=== PATIENT | male | born 1990 | race Caucasian/White ===

== ENCOUNTER 2017-01-27 22:13 | Emergency (ER) | payer OTHER ==
[2017-01-27 22:40] VITALS: BP 140/83; PULSE 70; RESP 20; TEMP 98.3; O2SAT 100
--- NOTE | 2017-01-27 23:15 | C.PDOC ---
History Of Present Illness 26 yo male come in for evaluation of Right external ear contusion sustained 3 days ago, while boxing. Pt sts, " I just concerned about cauliflower ear". Pt reported, swelling is slowly improves over right external ear. Otherwise, pt denies LOC, syncope, headache, dizziness, visual changes, focal deficits, ear discharge or change in auditory acuity. Ambulate to ED for evaluation, not in any apparent distress. Time Seen by Provider: 01/27/17 22:50 Chief Complaint (Nursing): ENT Problem History Per: Patient Past Medical History Reviewed: Historical Data, Nursing Documentation, Vital Signs Vital Signs: Last Vital Signs Temp 98.3 F 01/27/17 22:37 Pulse 70 01/27/17 22:37 Resp 20 01/27/17 22:37 BP 140/83 01/27/17 22:37 Pulse Ox 100 01/27/17 23:15 - Medical History PMH: No Chronic Diseases Surgical History: No Surg Hx Family History: States: No Known Family Hx - Social History Hx Alcohol Use: No Hx Substance Use: No - Immunization History Hx Tetanus Toxoid Vaccination: No Hx Influenza Vaccination: No Hx Pneumococcal Vaccination: No Review Of Systems Except As Marked, All Systems Reviewed And Found Negative. Constitutional: Negative for: Fever, Chills Eyes: Negative for: Vision Change ENT: Positive for: Ear Pain. Negative for: Ear Discharge, Mouth Pain, Mouth Swelling, Throat Swelling Gastrointestinal: Negative for: Nausea, Vomiting Musculoskeletal: Negative for: Neck Pain Skin: Positive for: Bruising Neurological: Negative for: Weakness, Numbness, Altered Mental Status, Headache , Dizziness Physical Exam - Physical Exam Appears: Well, No Acute Distress Skin: Normal Color, Warm, Dry Head: Atraumatic, Normacephalic Eye(s): bilateral: PERRL Ear(s): Left: Normal, Right: Other (small trace hematoma superior antihelical fold, no flactulance. No obvious deformity, opne wounds. Ear canal and TM- normal exam.) Nose: No Flaring, No Discharge, No Epistaxis, No Deformity, No Tenderness Oral Mucosa: Moist, No Drooling Tongue: Normal Appearing, No Lesions Lips: Normal Appearing, No Contusion Throat: Normal, No Drooling Neck: Normal ROM, Trachea Midline, No Midline Cervical Tenderness, No Paracervical Tenderness, No Step Off Deformity, Supple Back: Normal Inspection, No Vertebral Tenderness Extremity: Normal ROM, No Tenderness, No Deformity, No Swelling Neurological/Psych: Oriented x3, Normal Speech, Normal Motor, Normal Sensation, Normal Reflexes ED Course And Treatment O2 Sat by Pulse Oximetry: 100 Pulse Ox Interpretation: Normal Progress Note: On re-eavluation, pt is afebrile, hemodynamiclay stable. Non- toxic. Ambulatoyr in ED with stable gait. ENT: exam c/w small trace hematoma of external ear. No flactulance, no indication for draining of hematoma at present time. Neurologicaly intact. Pt was advised on external ear hematoma "cauliflower ear". Ref. to F/U with ENT In 1-2 days for re-eval. return to ED if any worsening or new changes. Disposition Counseled Patient/Family Regarding: Diagnosis, Need For Followup - Disposition Referrals: Jack Stewart MD [Staff Provider] - Disposition: HOME/ ROUTINE Disposition Time: 23:13 Condition: STABLE Additional Instructions: Follow up with ENT IN 1-2 days for re-evaluation. Return to ED if any worsening or new changes. Instructions: Earache (ED) - Clinical Impression Clinical Impression: Facial contusion
== END 2017-01-27 23:28 | disposition home or self-care (01) ==
LOC: C.ER 22:13
DX: S00.83XA Contusion of other part of head, initial encounter (principal); W21.89XA Striking against or struck by other sports equipment, initial encounter; Y93.71 Activity, boxing; Y92.89 Other specified places as the place of occurrence of the external cause